=== PATIENT | female | born 1965 | race Caucasian/White ===

== ENCOUNTER 2024-10-11 18:53 | Emergency (ER) | payer OTHER ==
[~2024-10-11] VITALS: Ht 157.5 cm; Wt 63.6 kg
[2024-10-11 19:01] VITALS: TEMP 98.2
[2024-10-11 23:27] VITALS: BP 140/95; PULSE 106; RESP 18; O2SAT 100
== END 2024-10-12 02:07 | disposition home or self-care (01) ==
LOC: EMS 18:58
DX: F19.10 Other psychoactive substance abuse, uncomplicated (principal); F41.9 Anxiety disorder, unspecified; F17.200 Nicotine dependence, unspecified, uncomplicated; Z90.89 Acquired absence of other organs
CPT/HCPCS: 99281; 99283